=== PATIENT | female | born 1945 | race Caucasian/White ===

== ENCOUNTER → 2016-11-26 | Outpatient (CLI) | payer MEDICARE, OTHER ==
[~2016-11-26] MED LIST: AUGMENTIN875 MG PO; BACTROBAN22 GM TOP; MOEXIPRIL HCL7.5 MG PO
--- NOTE | ~2016-11-26 | MY11 ---
[facility] A Service of [facility] RADIOLOGY TEXT RESULTS PATIENT: YASMEEN ANGULO LOCATION: [facility] : 47 UNIT #: [id number] AGE: [address]: Marly Fay MD SEX: F ORDER DR: [id number] [place] [id number] O MR#: [id number] Acc #: [id number] NAME: YASMEEN ANGULO : 1945 SEX: F STUDY DATE/TIME: 11/26/2016 13:20 UNIT: [facility] ROOM: STUDY DESCRIPTION: MY Mammogram Screening Dig Tim Attending Physician: Marly Fay M.D. Referring Physician: Marly Fay M.D. Ordering Physician: Marly Fay M.D. Primary Care Physician: Marly Fay M.D. MEDICAL IMAGING REPORT This report is preliminary unless electronic signature is present. EXAM Digital screening mammogram, 11/26/2016, [facility]. HISTORY 70-year-old woman positive family history, sister. Annual screen. COMPARISON STUDIES Mammograms date to 09/10/2010 with most recent 11/17/2015. FINDINGS Digital imaging of each breast was completed utilizing a two-view examination of each breast in craniocaudal and mediolateral-oblique projections. Review and interpretation of digital mammograms include a second review in conjunction with FDA-approved CAD device. There is a normal parenchymal presentation bilaterally consistent with the patient's age. There are no breast masses imaged and no parenchymal asymmetry is visualized. There are no suspicious microcalcifications and I see no focal architectural disturbance. IMPRESSION Negative screening digital mammogram. One-year followup recommended. Patients over the age of 40 are entered into a reminder system with target due date for the next mammogram. A result letter will also be sent to the patient. BIRADS: 1 Negative Dictated by... Fede Holm M.D. [facility] A Service [facility] RADIOLOGY TEXT RESULTS PATIENT: YASMEEN ANGULO LOCATION: [facility] : 47 UNIT #: [id number] AGE: [address]: Marly Fay MD SEX: F ORDER DR: THIS IS AN ELECTRONICALLY VERIFIED REPORT Fede Holm M.D. at 11/26/2016 3:38 PM [place] TD: 11/26/2016 14:05 JOB #: [id number] MEDICAL IMAGING REPORT Page 1 of 1
== END | disposition home or self-care (01) ==
LOC: SMAM 12:16
DX: Z12.31 Encounter for screening mammogram for malignant neoplasm of breast (principal); Z80.3 Family history of malignant neoplasm of breast
CPT/HCPCS: G0202